=== PATIENT | male | born 1955 | race Caucasian/White ===

== ENCOUNTER → 2018-09-15 09:26 | Outpatient (CLI) | payer OTHER, SELFPAY ==
[2018-09-15 12:20] LABS: Color, Urine Yellow (Yellow); Glucose, Dipstick Normal (Normal); Ketone-Dipstick Negative (Negative); Leukocyte Esterase-Dipstick Negative /ul (Negative); Nitrite-Dipstick Negative (Negative); Occult Blood-Urine Negative /ul (Negative); Protein-Dipstick Negative (Negative); Urine Bilirubin Dipstick Negative (Negative); Urine Clarity Sl. Cloudy (Clear); Urine Urobilinogen Normal (Normal)
[2018-09-15 12:56] LABS: ALB/GLOB Ratio 0.9 RATIO (0.9-2.4); AST(SGOT) 39 U/L (15-37); Alanine Aminotransfer ALT/SGPT 57 U/L (16-61); Albumin, Serum 3.4 g/dL (3.2-5.0); Alkaline Phosphatase 66 U/L (45-117); Anion Gap 10 (5-15); BUN 19 mg/dL (7-18); BUN/Creat Ratio 17.8 RATIO (10-20); Calcium,Total 8.7 mg/dL (8.5-10.1); Chloride 106 mmol/L (98-107); Cholesterol 163 mg/dL (200); Creatinine, Serum 1.07 mg/dL (0.70-1.30); EST Glomerular Filtration Rate 74 mL/min (>60); Est Glom Filt Rate - Afr Amer 89 mL/min (>60); Globulin 3.8 g/dL (2.2-4.2); Glucose 74 mg/dL (74-106); High Density Lipoprotein 29 mg/dL; Potassium 4.7 mmol/L (3.5-5.1); Protein, Total 7.2 g/dL (6.4-8.2); Sodium Level 141 mmol/L (136-145); Triglycerides 178 mg/dL; Very Low Density Lipoprotein 36 mg/dL (5-40)
== END ==
PROVIDERS: Family Provider Family Medicine; PCP Family Medicine; Referring Provider Family Medicine; Visit Provider Family Medicine
DX: Z00.00 Encounter for general adult medical examination without abnormal findings (principal); Z12.5 Encounter for screening for malignant neoplasm of prostate; I10 Essential (primary) hypertension
CPT/HCPCS: 36415; 80053; 80061; 81002; 84153; G0103

== ENCOUNTER → 2019-10-03 11:30 | Outpatient (CLI) | payer OTHER, SELFPAY ==
[2019-10-03 12:42] LABS: Absolute Lymphocyte Count 2.43 X10^3/uL (0.83-4.51); Absolute Neutrophil Count 3.9 X10^3/uL (2.0-7.7); Basophil# 0.05 X10^3/uL; Basophil% 0.7 % (0-1); Eosinophil# 0.23 X10^3/uL; Eosinophils% 3.1 % (0-5); Hematocrit 49.8 % (40-54); Hemoglobin 16.9 g/dL (13.0-16.5); Lymphocyte # 2.43 X10^3/ul (4.0); Lymphocyte % 32.4 % (19-41); Mean Corp Hgb Conc 33.9 g/dL (32-36); Mean Corpuscular Hgb 30.5 pg (27.0-32.0); Mean Corpuscular Volume 89.9 fL (80-94); Mean Platelet Vol. 12.2 fl (6.2-12.0); Monocyte# 0.89 X10^3/uL; Monocyte% 11.9 % (0-10); NRBC Flagged by Analyzer 0 % (0-5); Neutrophil # 3.85 X10^3/uL (2.7-7.7); Neutrophil % 51.4 % (47-70); Platelet Count 156 K/mm3 (150-450); RBC Distribution Width SD 39.3 fl (35.1-43.9); Red Blood Count 5.54 M/mm3 (4.6-6.2); White Blood Count 7.5 K/mm3 (4.4-11.0)
[2019-10-03 12:52] LABS: Color, Urine Yellow (Yellow); Glucose, Dipstick Normal (Normal); Ketone-Dipstick Negative (Negative); Leukocyte Esterase-Dipstick Negative /ul (Negative); Nitrite-Dipstick Negative (Negative); Occult Blood-Urine Negative /ul (Negative); Protein-Dipstick Negative (Negative); Urine Bilirubin Dipstick Negative (Negative); Urine Clarity Clear (Clear); Urine Urobilinogen Normal (Normal)
[2019-10-03 13:20] LABS: ALB/GLOB Ratio 0.9 RATIO (0.9-2.4); AST(SGOT) 45 U/L (15-37); Alanine Aminotransfer ALT/SGPT 57 U/L (16-61); Albumin, Serum 3.5 g/dL (3.2-5.0); Alkaline Phosphatase 105 U/L (45-117); Anion Gap 4 (5-15); BUN 14 mg/dL (7-18); BUN/Creat Ratio 15.7 RATIO (10-20); Calcium,Total 8.6 mg/dL (8.5-10.1); Chloride 105 mmol/L (98-107); Cholesterol 201 mg/dL (200); Creatinine, Serum 0.89 mg/dL (0.70-1.30); EST Glomerular Filtration Rate 91 mL/min (>60); Est Glom Filt Rate - Afr Amer 110 mL/min (>60); Globulin 3.9 g/dL (2.2-4.2); Glucose 101 mg/dL (74-106); High Density Lipoprotein 25 mg/dL; Potassium 4.2 mmol/L (3.5-5.1); Protein, Total 7.4 g/dL (6.4-8.2); Sodium Level 138 mmol/L (136-145); Triglycerides 667 mg/dL
== END ==
PROVIDERS: Family Provider Family Medicine; PCP Family Medicine
DX: Z00.00 Encounter for general adult medical examination without abnormal findings (principal); I10 Essential (primary) hypertension
CPT/HCPCS: 36415; 80053; 80061; 81002; 85025

== ENCOUNTER → 2020-10-06 08:12 | Outpatient (CLI) | payer MEDICARE, SELFPAY ==
[2020-10-06 09:17] LABS: Absolute Lymphocyte Count 2.09 X10^3/uL (0.83-4.51); Absolute Neutrophil Count 3.3 X10^3/uL (2.0-7.7); Basophil# 0.04 X10^3/uL; Basophil% 0.6 % (0-1); Eosinophil# 0.28 X10^3/uL; Eosinophils% 4.3 % (0-5); Hematocrit 52.4 % (40-54); Hemoglobin 17.1 g/dL (13.0-16.5); Lymphocyte # 2.09 X10^3/ul (4.0); Lymphocyte % 32.4 % (19-41); Mean Corp Hgb Conc 32.6 g/dL (32-36); Mean Corpuscular Hgb 29.5 pg (27.0-32.0); Mean Corpuscular Volume 90.3 fL (80-94); Mean Platelet Vol. 11.8 fl (6.2-12.0); Monocyte# 0.71 X10^3/uL; NRBC Flagged by Analyzer 0 % (0-5); Neutrophil # 3.31 X10^3/uL (2.7-7.7); Neutrophil % 51.2 % (47-70); Platelet Count 141 K/mm3 (150-450); RBC Distribution Width CV 12.1 % (11.6-14.6); RBC Distribution Width SD 40.1 fl (35.1-43.9); White Blood Count 6.5 K/mm3 (4.4-11.0)
[2020-10-06 09:20] LABS: Color, Urine Yellow (Yellow); Glucose, Dipstick Normal (Normal); Ketone-Dipstick Negative (Negative); Leukocyte Esterase-Dipstick Negative /ul (Negative); Nitrite-Dipstick Negative (Negative); Occult Blood-Urine Negative /ul (Negative); Protein-Dipstick Negative (Negative); Urine Bilirubin Dipstick Negative (Negative); Urine Clarity Sl. Cloudy (Clear); Urine Urobilinogen Normal (Normal)
[2020-10-06 10:06] LABS: AST(SGOT) 28 U/L (15-37); Alanine Aminotransfer ALT/SGPT 46 U/L (16-61); Albumin, Serum 3.4 g/dL (3.2-5.0); Alkaline Phosphatase 69 U/L (45-117); Anion Gap 3 (5-15); BUN 19 mg/dL (7-18); BUN/Creat Ratio 20.1 RATIO (10-20); Calcium,Total 8.6 mg/dL (8.5-10.1); Chloride 107 mmol/L (98-107); Cholesterol 174 mg/dL (200); Creatinine, Serum 0.95 mg/dL (0.70-1.30); EST Glomerular Filtration Rate 84 mL/min (>60); Est Glom Filt Rate - Afr Amer 102 mL/min (>60); Globulin 3.5 g/dL (2.2-4.2); Glucose 87 mg/dL (74-106); High Density Lipoprotein 28 mg/dL; PSA,Total - Annual Screen 0.87 ng/mL (0.00-4.00); Potassium 4.3 mmol/L (3.5-5.1); Protein, Total 6.9 g/dL (6.4-8.2); Sodium Level 140 mmol/L (136-145); Triglycerides 243 mg/dL; Very Low Density Lipoprotein 49 mg/dL (5-40)
== END ==
PROVIDERS: PCP Family Medicine; Referring Provider Family Medicine; Visit Provider Family Medicine
DX: Z00.00 Encounter for general adult medical examination without abnormal findings (principal); E78.9 Disorder of lipoprotein metabolism, unspecified; I10 Essential (primary) hypertension; Z12.5 Encounter for screening for malignant neoplasm of prostate
CPT/HCPCS: 36415; 80053; 80061; 81002; 84153; 85025; G0103

== ENCOUNTER 2021-07-16 16:49 | Emergency (ER) | payer MEDICARE, SELFPAY ==
[2021-07-16] VITALS (13 sets, daily range): BP systolic 134–201; BP diastolic 84–129; PULSE 56–72; RESP 10–21; TEMP 36.8; O2SAT 87–99; BMI 33.2
--- NOTE | 2021-07-16 17:14 | EX.ED.UPPERE ---
HPI History of Present Illness Chief Complaint: Upper Extremity Injury Informant: patient Occured/Mechanism Mechanism/Context: Yes blunt trauma and Yes same level fall Onset/Context/Timing Onset: Hours Context: Sudden Onset Timing: Continuous Quality of Pain: Dull and Aching Location: Right elbow Current Severity: Mild Maximum Severity: Severe Worsened by: Any type of movement Relieved by: Rest Associated Symptoms Associated Symptoms: Positive for Loss of Funtion; Negative for Parasthesia and Weakness Narrative Narrative: Patient is a 66-year-old male who presents after blunt injury to his right upper extremity. Has deformity to the right elbow. He arrived with a splint applied by his daughter who is a nurse. He states he had numbness initially in the elbow region. He denies tingling in his fingers. He denies pain in his hand or forearm. He is not on an anticoagulant. He denies head trauma. Eyes visual, ocular auditory symptoms. He denies neck pain. Eyes cardiac respiratory symptoms. Tetanus Immunization: 5-10 years Prior similar symptoms: No Recent Illness/Hospitalization: No PFSH PFSH Medical History (Updated 07/16/21 @ 20:[address] Singh Jason MD) Hypertension Home Medications metoprolol tartrate 25 mg PO BID 12/30/15 [History Last Taken 01/06/16 05:00 25 mg] fluticasone propionate [Flonase Allergy Relief] 1 spray INTRANASAL DAILY 07/16/21 [History Last Taken Unknown] Allergy/AdvReac Type Severity Reaction Status Date / Time pseudoephedrine HCl AdvReac Other Verified 07/16/21 16:50 [From [facility]] Social History (Updated 07/16/21 @ 17:[address] Singh Jason MD) household members: spouse housing: house Smoking Status: Never smoker substance use type: does not use ROS ROS ED Constitutional Constitutional ED: Denies chills, frequent falls or subjective Eyes Eyes: Denies blurry vision, change in vision or diplopia ENT ENT ED: Denies ear pain, rhinorrhea or sore throat Cardiovascular Cardiovascular: Denies chest pain, palpitations or racing heartbeat Respiratory/Chest Respiratory/Chest: Denies cough, dyspnea or dyspnea on exertion Gastrointestinal Gastrointestinal: Denies nausea or vomiting Musculoskeletal Musculoskeletal: Reports other Details: Pain right upper extremity that he localizes to the elbow ; Denies back pain, myalgias or neck pain Integumentary Denies Abrasions or rash Neurologic Neurologic: Reports paresthesias; Denies headache(s) or weakness Psychiatric Psychiatric: Denies anxiety or depression Hematologic/Lymphatic Hematologic/Lymphatic: Denies easy bleeding or easy bruising EXAM Physical Exam Const Vital Signs: 07/16/21 16:50 Temperature 98.2 F Temperature Source Temporal Pulse Rate 61 Respiratory Rate 14 Blood Pressure 201/117 H Blood Pressure Mean 145 Pulse Ox 98 Oxygen Delivery Method Room Air Positive well nourished and well developed General Appearance ED: well developed and other Patient appears uncomfortable. HEENT normocephalic and atraumatic Eyes PERRL and EOMs intact bilaterally Eyes Narrative: There is no subconjunctival hemorrhage noted. Neck full ROM and supple Chest Wall inspection of chest normal and palpation of chest normal Resp normal respiratory effort and clear to auscultation bilaterally Cardio regular rate, regular rhythm, S1 normal heart sound, S2 normal heart sound and no murmurs GI non-tender, non-distended and no masses Auscultation: normoactive bowel sounds Palpation: soft Back/Spine no CVA tenderness Cervical Spine: Negative for cervical spine tenderness Extremity Negative for normal to inspection or full ROM Extremity Narrative: There is deformity to the right elbow. Axillary, median, radial and ulnar function intact. Psych mental status grossly normal Skin Lesions: no lesions Rashes: no rashes Trauma: no lacerations or abrasions MDM MDM MDM Narrative Medical decision making narrative: Patient was made n.p.o. IV was established. He was treated with IV opiate analgesic and x-ray was obtained to delineate if patient has a fracture, dislocation or fracture dislocation of the right elbow. Dr. Phong Kaplan is on-call for orthopedics was contacted. He did see patient. He informed him that he would attempt to reduce it. I did provide deep sedation for him. The dislocation is improved but it is still dislocated. He and his partner who does operate on upper extremity recommend transfer to tertiary facility. I was informed he has been turned down by 4 hospitals. Attempting fifth. If for possible turned him down will notify Dr. Kaplan. Radiography Diagnostic Testing: Three-view x-ray of the elbow reveals a fracture dislocation. There is an avulsion of the coronoid process. There may be a fracture associated with the lateral epicondyles. The x-ray was interpreted by me at 1756. X-ray was obtained after attempt of reduction by me. There are multiple bone fragments noted and the lateral dislocation was not reduced. Dr. Phong Kaplan is on-call for orthopedics was contacted. He did see patient. He informed him that he would attempt to reduce it. I did provide deep sedation for him. The dislocation is improved but it is still dislocated. He and his partner who does operate on upper extremity recommend transfer to tertiary facility. I was informed he has been turned down by 4 hospitals. Attempting fifth. If for possible turned him down will notify Dr. Kaplan. Procedures Other Procedures Procedure(s): Patient was consented for deep sedation and closed reduction of fracture dislocation right elbow. Patient was given opportunity ask questions after he was informed of the risk benefits of the deep sedation and attempted reduction. He signed consent form. Patient received 100 mg of propofol. Attempt at reduction by me was unsuccessful. As documented in the MDM Dr. Phong Kaplan was contacted. Sedation was undertaken by me and attempt of reduction by Dr. Kaplan. He was unsuccessful. Start time for deep sedation and reduction for first attempt was 1915 and end time was 1923. Patient remained in a status bradycardia. He did not desaturate until the end of the procedure. O2 saturation went 87%. Oxygen was increased. Jaw thrust maneuver was performed. He improved to greater than 90%. Second attempt at deep sedation and closed reduction by me and Dr. Phong Kaplan respectively began at 1946 and was terminated at 1956. Patient remained in a sinus bradycardia. He did not desaturate nor did he have any hemodynamic instability. Discharge Plan Triage Chief Complaint: Upper Extremity Injury ED Provider: Singh Jason Dx/Rx/DC Orders Clinical Impression: Closed fracture dislocation of right elbow Prescriptions: No Action metoprolol tartrate 25 mg tablet 25 mg PO BID RF: 0 fluticasone propionate [Flonase Allergy Relief] 50 mcg/actuation Darragh,Suspension 1 spray INTRANASAL DAILY RF: 0 Primary Care Provider: Ulysses Pitt Referrals: Ulysses Pitt MD [Primary Care Provider] - Disposition Disposition: Acute Care Hospital Discharge Location: [facility]
[2021-07-16] MEDS: HYDROmorphone 1 MG/ML Syringe IV (17:21)
--- NOTE | 2021-07-16 17:30 | RAD_ITS ---
STUDY: X-RAY - RIGHT ELBOW REASON FOR EXAM: Male, 66 years old. Injury/Pain TECHNIQUE: 3 view(s) of the elbow. COMPARISON: None. FINDINGS: Limited due to limited range of motion. No true lateral view. Marked lateral subluxation of the radius and ulna relative to the humerus. Acute, nondisplaced intra-articular fracture of the radial head. Bone fragments anterior to the humerus and ulnar coronoid, with uncertain donor site. Joint spaces are well-maintained. Normal alignment. Soft tissues are unremarkable. No radiopaque foreign body or soft tissue gas. RAD/Elbow min 3 Views IMPRESSION: Acute fracture or subluxation of the elbow, as described. Electronically Signed: Taya Gann MD at 19:00 EDT Tel , Service support ,
[2021-07-16] MEDS: Propofol 200 MG/20 ML Vial IV BOLUS ×2 (19:16→19:47)
--- NOTE | 2021-07-16 19:20 | RAD_ITS ---
STUDY: X-RAY - RIGHT ELBOW REASON FOR EXAM: Male, 66 years old. POST REDUCTION TECHNIQUE: 2 view(s) of the elbow. COMPARISON: 5:35 PM. FINDINGS: Posterior subluxation of the olecranon relative to the distal humerus. Acute radial head fracture is less conspicuous on the current study. Comminuted bone fragments are noted distal to the humerus. Moderate soft tissue swelling. RAD/Elbow 2 Views IMPRESSION: Fracture subluxation of the elbow as described. Electronically Signed: Taya Gann MD at 20:31 EDT Tel , Service support ,
--- NOTE | 2021-07-16 20:00 | RAD_ITS ---
STUDY: X-RAY - RIGHT ELBOW REASON FOR EXAM: Male, 66 years old. dislocation-sedatioin TECHNIQUE: 3 view(s) of the elbow. COMPARISON: None. FINDINGS: Mild lateral subluxation of the ulna relative to the humerus, significantly improved compared to prior studies. Lateral dislocation of the radius. Nondisplaced radial head fracture. Comminuted bone fragments arising part from the ulnar coronoid process. Elbow joint effusion and soft tissue swelling. RAD/Elbow 2 Views IMPRESSION: Fracture subluxation of the elbow as described. Electronically Signed: Taya Gann MD at 21:08 EDT Tel , Service support ,
--- NOTE | 2021-07-16 20:16 | PCM.HP.BLA ---
History and Physical Date of Admission: 07/16/21 Patient is a 66-year-old male [id number] that fell off a trailer earlier today injuring his right elbow. He had pain swelling and deformity. He was brought to the hospital. He was noted to have a fracture dislocation of the elbow. Emergency room doctor was not successful relocating the elbow under conscious sedation. Orthopedics was consulted. He underwent repeat attempted reduction under conscious sedation which was again unsuccessful. He continued to have lateral dislocation of the radius and ulna. Hand remained grossly neurovascular intact. We are not having success trying to transfer him to a trauma center for evaluation and treatment by an upper extremity specialist. If transfer cannot be granted, he will be brought in for observation status for planned attempted closed reduction under general anesthetic in the morning Past medical history significant for hypertension. Past surgical history includes pilonidal cyst with abscess Current medications include Flonase daily, metoprolol tartrate 5 mg twice daily Review of systems denies any problems with his eyes ears nose or throat heart or lungs bowel or bladder Social history he lives at home with his . Family history, noncontributory Physical exam: Vital signs reviewed showing blood pressure 159/95, pulse 59, respirations 13, oxygen sat 95 HEENT normocephalic nontender pupils equal round and reactive Lungs clear to auscultation Abdomen soft nontender positive bowel sounds Heart regular rhythm normal S1-S2 Right elbow has severe swelling. Right elbow has deformity. Right elbow has a superficial skin tear/abrasion medially without deep involvement. Distal pulses are intact. He can gently flex and extend the fingers. He has elbow pain with motion. X-rays several views of the right elbow shows a lateral dislocation of the radial head and ulna. Chip fractures are noted anteriorly. No obvious posterior dislocation of the ulna Assessment: Right elbow fracture dislocation #2 hypertension #3 obesity Treatment: Patient did undergo attempted closed reduction of the elbow with sedation as administered by the ER physician. With traction manipulation we are not successful. With medial directed force of the radius and ulna we were not successful. We tried this in extension and flexion. We tried this in pronation and supination. Post attempted reduction x-rays did not show improvement in alignment on the AP view. Lateral view shows anterior chip fractures which were previously present. On attempted rereferrals to other facilities we have not been successful yet. Again if we can find transfer we will. If not he will be brought in observation and we will plan closed reduction in the morning. Patient and his understand and agree. Risk of surgery including but not limited to from operative or postoperative complications. Risk of anesthetic complications such as heart attacks, strokes, seizures, or . Risk of infections. Risk of damage to nerves arteries tendons. Risk of inadvertent fractures or dislocations. Risk of bone or wound healing complications. Possibility of nonunion malunion pain stiffness weakness. Possible need for further surgery such as hardware removal. Risk of DVT PE and other potential complications could lead to or disability explained. No guarantees were stated or implied. All of their questions were answered. Appropriate informed consent was obtained and signed for surgical intervention. Case has been discussed with Dr. Boland. Case was discussed with the ER physician. I just received notification patient has been accepted at [facility]. Therefore he will not be admitted to the hospital.
[2021-07-16] MEDS: Ondansetron 4 MG/2 ML Vial IV (21:36)
--- NOTE | 2021-07-16 23:04 | ED.RN ---
2245: pt and spouse frustrated with wait time of squad to transfer to [facility] ED. pt stated that he was not staying past 2300 if the squad did not make it by then his was going to drive him. this RN had received update from accredited legal secretary that squad stated they should be here in 10-15 min at 2240. at 2300 squad still did not arrive, pt decided to leave. iv was discontinued and taken out without problem. pt given directions to get to [facility] and agreed to drive pt to [facility] ED.
== END 2021-07-16 23:08 | disposition left against medical advice (07) ==
PROVIDERS: Emergency Provider Emergency Medicine; PCP Family Medicine
DX: S52.124A Nondisplaced fracture of head of right radius, initial encounter for closed fracture (principal); R00.1 Bradycardia, unspecified; W18.30XA Fall on same level, unspecified, initial encounter; Y93.9 Activity, unspecified; Y92.9 Unspecified place or not applicable; I10 Essential (primary) hypertension; Z79.899 Other long term (current) drug therapy
CPT/HCPCS: 24655 ×2; 73070; 73080; 87426; 96374; 96375; 99152; 99285; J7030; A4216; J2405